=== PATIENT | male | born 1980 | race Caucasian/White ===

== ENCOUNTER 2016-05-30 18:41 | Emergency (ER) | payer SELFPAY ==
--- NOTE | ~2016-05-30 | ER ---
PATIENT'S NAME: RADHA GUARDADO [facility] AGE: 35 Y [address] ROOM: [place], [place] [address] LOCATION: ED ADMIT DATE: 05/30/2016 ER/Outpatient Report DISCHARGE DATE: 05/30/2016 FAMILY PHYSICIAN: Physician, Unknown ATTENDING PHYSICIAN: Venu Julio CHIEF COMPLAINT: Pain in the hands, particularly the left index finger. HISTORY OF PRESENT ILLNESS: The patient states that for the last several days, he has had pain and swelling in his left index finger. He has an area that is red. He is concerned because his room at home has been infected with rats and they have peed and pooped in his room. He has cleaned everything up and has been wearing work gloves. He denies any bites. He denies any fevers or chills with this. He has been using some ice to try to get better. He has been having multiple sores and issues recently. He is concerned about some nasal discharge. No other acute findings. PAST MEDICAL HISTORY: Documented on the record and reviewed by me. SOCIAL HISTORY: Documented on the record and reviewed by me. MEDICATIONS: Documented on the record and reviewed by me. ALLERGIES: DOCUMENTED ON THE RECORD AND REVIEWED BY ME. REVIEW OF SYSTEMS: All systems reviewed and negative except as noted in the HPI. PHYSICAL EXAMINATION: VITAL SIGNS: Blood pressure 176/81, pulse 111, respiratory rate is 16, temperature 99.2, and SpO2 is 95% on room air. Pain is minimal. GENERAL: Age-appropriate male, in no obvious pain or distress, resting upright in the exam chair. NEUROLOGIC: Awake and alert. GCS is 15. No focal deficits or asymmetry. HEENT: Normocephalic and atraumatic. Eyes are PERRL. Oropharynx is clear. NECK: Supple. Trachea is midline. CHEST: Heart has regular rate and rhythm with borderline tachycardia. Lungs are clear to auscultation bilaterally with no rhonchi, wheezes, or rales. ABDOMEN: Soft, nontender, and nondistended. No rebound or guarding. PATIENT'S NAME: RADHA GUARDADO [facility] AGE: 35 Y [address] ROOM: [place], [place] [address] LOCATION: ED ADMIT DATE: 05/30/2016 ER/Outpatient Report DISCHARGE DATE: 05/30/2016 FAMILY PHYSICIAN: Physician, Unknown ATTENDING PHYSICIAN: Venu Julio EXTREMITIES: Notable for some redness over the left index finger, it is confined to the finger. The finger has normal range of motion in all joints. There is no tenosynovitis appreciated. No fluctuance. No abscesses. SKIN: Warm, dry, and intact otherwise. LABS AND X-RAYS: None. IMPRESSION: Cellulitis of the finger. EMERGENCY DEPARTMENT COURSE: The patient was seen and evaluated as above. Simple cellulitis of the finger is diagnosed. We will start him on antibiotics with Bactrim to cover possible Staph. The patient was recently jailed. He should return as needed if worsening. Presentation not consistent with septic arthritis or tenosynovitis. No abscess appreciated. Follow up as needed. Return if worse. MD TIMI BATES/robel /[id number] d: 05/31/16310 t: 06/11/16 0833, OUTPATIENT REPORT
== END 2016-05-30 19:15 | disposition disaster alternative care site (69) ==
LOC: GMED 18:41
DX: L03.012 Cellulitis of left finger (principal); Z88.0 Allergy status to penicillin; Z79.899 Other long term (current) drug therapy